=== PATIENT | male | born 1990 | race Hispanic/Latino ===

== ENCOUNTER 2017-11-11 12:29 | Emergency (ER) | payer SELFPAY ==
[2017-11-11] MEDS ORDERED: FLUORESCEIN SODIUM 0.6 MG/WRAP ONE (15:45)
[2017-11-11] MEDS ORDERED: TETRACAINE HCL 0.5% 2ML OPTH ONE (15:45)
[2017-11-11] MEDS ORDERED: NA CHLORIDE 0.9% 1,000 ML ONE (16:08)
--- NOTE | 2017-11-11 16:44 | ER ---
Nurse's Notes [facility] Name: Willie Iverson Age: 27 yrs Sex: Male : 1990 Arrival Date: 11/11/2017 Time: 12:34 Bed 28 Private MD: Diagnosis: Injury of conjunctiva and corneal abrasion without foreign body, left eye Presentation: 11/11 12:45 Presenting complaint: Patient states: i was at work yesterday and a piece of insulation hj or fiber glass, a piece of metal got into my eye, and its bothering now, 8/10 pain; teary eyed;. Transition of care: patient was not received from another setting of care. Onset of symptoms was November 11, 2017. Care prior to arrival: None. 12:45 Method Of Arrival: Ambulatory 12:45 Acuity: PATRICIA 4 hj Triage Assessment: 12:47 General: Appears in no apparent distress. uncomfortable, Behavior is calm, cooperative, hj appropriate for age. Pain: Denies pain. Historical: - Allergies: 12:46 No Known Allergies; hj - Home Meds: 12:46 None [Active]; hj - PMHx: 12:46 None; hj - PSHx: 12:46 None; hj - Immunization history:: Flu vaccine is up to date. - Social history:: Smoking status: Patient/guardian denies using tobacco. Screenin:18 Abuse screen: Denies threats or abuse. Nutritional screening: No deficits noted. kb1 Tuberculosis screening: No symptoms or risk factors identified. Fall Risk None identified. Assessment: 15:18 General: Appears in no apparent distress. Behavior is calm, cooperative. Pain: kb1 Complains of pain in left eye. Neuro: Level of Consciousness is awake, alert, obeys commands, Oriented to person, place, time, situation. Cardiovascular: Patient's skin is warm and dry. Respiratory: Airway is patent. GI: No signs and/or symptoms were reported involving the gastrointestinal system. : No signs and/or symptoms were reported regarding the genitourinary system. 15:28 Injury Description: Foreign body is located left eye is states "I was at work and I was kb1 tearing down panels. Last night my eye started hurting. 16:30 Reassessment: Patient appears in no apparent distress at this time. Patient and/or kb1 family updated on plan of care and expected duration. Pain level reassessed. Patient is alert, oriented x 3, equal unlabored respirations, skin warm/dry/pink. Patient states feeling better. Vital Signs: 12:47 BP 143 / 81; Pulse 82; Resp 18; Temp 98.2(TE); Pulse Ox 100% on R/A; Weight 77.11 kg; hj Height 5 ft. 5 in. (165.10 cm); Pain 8/10; 15:18 BP 129 / 78; Pulse 75; Resp 18; Pulse Ox 100% ; kb1 16:26 BP 142 / 82; Pulse 78; Resp 18; Pulse Ox 100% ; kb1 12:47 Body Mass Index 28.29 (77.11 kg, 165.10 cm) hj Visual Acuity: 15:29 Left Eye Visual acuity 20/40, ; Right Eye Visual acuity 20/25, ; Both Eyes Visual kb1 acuity 20/25; Without Lenses; ED Course: 12:34 Patient arrived in ED. mr 12:46 Triage completed. hj 12:47 Arm band placed on right wrist. hj 15:00 Noelle Keith NP is PHCP. rh1 15:00 Chance Monet MD is Attending Physician. rh1 15:17 Augustina Crouch, DANIELLE is Primary Nurse. kb1 15:18 Patient has correct armband on for positive identification. Bed in low position. Call kb1 light in reach. Side rails up X 1. Pulse ox on. NIBP on. 15:18 No provider procedures requiring assistance completed. Patient did not have IV access kb1 during this emergency room visit. 16:11 Eye irrigation of left eye IV tubing with 1 liter normal saline, Patient tolerated well.kb1 16:43 Elaine Neely MD is Referral Physician. 1 Administered Medications: 15:30 Drug: Tetracaine Solution (0.5 %) 1 vials {Note: Given to provider for administration.} kb1 Route: Topical; Site: left eye; 15:30 Drug: Fluorescein Strip 1 strip {Note: Given to provider for administration.} Route: kb1 Ophthalmic; Site: left eye; Outcome: 16:43 Discharge ordered by . 1 16:51 Discharged to home ambulatory. kb1 16:51 Condition: improved 16:51 Discharge instructions given to patient, Instructed on discharge instructions, follow up and referral plans. medication usage, Demonstrated understanding of instructions, follow-up care, medications, Prescriptions given X 1. 16:52 Patient left the ED. kb1 Signatures: Maggie Rose mr Noelle Keith, GLENN TRADER rh1 Gino Hernandez RN RN Augustina Lomax RN RN kb1 Corrections: (The following items were deleted from the chart) 12:48 12:47 Pulse 82bpm; Resp 18bpm; Pulse Ox 100% RA; Temp 98.2F Temporal; 77.11 kg; Height hj 5 ft. 5 in.; BMI: 28.2; Pain 8/10; hj
--- NOTE | 2017-11-11 16:45 | EDPHYS ---
Physician Documentation [facility] Name: Willie Iverson Age: 27 yrs Sex: Male : 1990 Arrival Date: 11/11/2017 Time: 12:34 Bed 28 Private MD: ED Physician Chance Monet HPI: 11/11 15:18 This 27 yrs old Male presents to ER via Ambulatory with complaints of Foreign rh1 Body In Eye. 15:18 The patient is experiencing foreign body sensation, tearing, The patient sustained rh1 pulling out insulation and thinks a piece got into his eye, to the left eye. Onset: The symptoms/episode began/occurred yesterday. Duration: the symptoms are continuous. Aggravated by blinking, Alleviated by nothing. Associated signs and symptoms: Pertinent negatives: chills, fever, headache, runny nose. Patient does not utilize any form of vision correction. Severity of symptoms: At their worst the symptoms were moderate in the emergency department the symptoms are unchanged. The patient has experienced a previous episode. The patient has not recently seen a physician. Pt. reports he was pulling out insulation yesterday and thinks he may have gotten some in his eye. He rubbed it last night, and has been having tearing and redness at left eye. Denies any decreased vision, fever, trauma.. Historical: - Allergies: 12:46 No Known Allergies; - Home Meds: 12:46 None [Active]; hj - PMHx: 12:46 None; hj - PSHx: 12:46 None; - Immunization history:: Flu vaccine is up to date. - Social history:: Smoking status: Patient/guardian denies using tobacco. ROS: 15:18 Constitutional: Negative for fever rh1 15:18 Eyes: Positive for foreign body sensation, redness, tearing, Negative for matting, pain, visual disturbance. 15:18 ENT: Negative for rhinorrhea, sinus congestion. 15:18 Abdomen/GI: Negative for vomiting. 15:18 Neuro: Negative for headache. 15:18 All other systems are negative. Exam: 15:18 Constitutional: This is a well developed, well nourished patient who is awake, alert, rh1 and in no acute distress. Head/Face: Normocephalic, atraumatic. ENT: Nares patent. No nasal discharge, no septal abnormalities noted. Tympanic membranes are normal and external auditory canals are clear. Oropharynx with no redness, swelling, or masses, exudates, or evidence of obstruction, uvula midline. Mucous membranes moist. Cardiovascular: Regular rate and rhythm with a normal S1 and S2. No gallops, murmurs, or rubs. No JVD. No pulse deficits. Respiratory: Lungs have equal breath sounds bilaterally, clear to auscultation. No rales, rhonchi or wheezes noted. No increased work of breathing. Abdomen/GI: Soft, non-tender, with normal bowel sounds. No distension. No guarding or rebound. No evidence of tenderness throughout. Skin: Warm, dry with normal turgor. Normal color with no rashes, no lesions, and no evidence of cellulitis. Neuro: Awake and alert, GCS 15, oriented to person, place, time, and situation. Cranial nerves II-XII grossly intact. Motor strength 5/5 in all extremities. Sensory grossly intact. Cerebellar exam normal. Normal gait. 15:18 Eyes: Periorbital structures: appear normal, no abrasion, no cellulitis, no contusion, no erythema, no swelling, Pupils: no acute changes, normal size, normal reaction to light, equal, right pupil is approximately 3 mm(s), left pupil is approximately 3 mm(s), Extraocular movements: intact throughout, Conjunctiva: injected, in the left eye, Corneas: foreign body, on the left, at 9 o'clock, centrally, Nystagmus: is not appreciated. Vital Signs: 12:47 BP 143 / 81; Pulse 82; Resp 18; Temp 98.2(TE); Pulse Ox 100% on R/A; Weight 77.11 kg; Height 5 ft. 5 in. (165.10 cm); Pain 8/10; 15:18 BP 129 / 78; Pulse 75; Resp 18; Pulse Ox 100% ; kb1 16:26 BP 142 / 82; Pulse 78; Resp 18; Pulse Ox 100% ; kb1 12:47 Body Mass Index 28.29 (77.11 kg, 165.10 cm) Visual Acuity: 15:29 Left Eye Visual acuity 20/40, ; Right Eye Visual acuity 20/25, ; Both Eyes Visual kb1 acuity 20/25; Without Lenses; Procedures: 15:32 Eye Exam: tetracaine and fluorescein stain to left eye, with pinpoint abrasion at left rh1 cornea 9 o'clock medially, with abrasion adjacent to that, approx. 3 mm long; lid everted and without foreign body. MDM: 15:01 Patient medically screened. rh1 16:43 Data reviewed: vital signs, nurses notes, and as a result, I will discharge patient. rh1 Data interpreted: Pulse oximetry: on room air is 100 %. Interpretation: normal. Counseling: I had a detailed discussion with the patient and/or guardian regarding: the historical points, exam findings, and any diagnostic results supporting the discharge/admit diagnosis, the need for outpatient follow up, an opthalmologist, to return to the emergency department if symptoms worsen or persist or if there are any questions or concerns that arise at home. 11/11 15:21 Order name: Visual Acuity; Complete Time: 15:30 rh1 11/11 15:34 Order name: [facility] – [place], [place]. Order: please irrigate left eye with sterile saline - 1 L please; [facility] Complete Time: 16:12 Administered Medications: 15:30 Drug: Tetracaine Solution (0.5 %) 1 vials {Note: Given to provider for administration.} kb1 Route: Topical; Site: left eye; 15:30 Drug: Fluorescein Strip 1 strip {Note: Given to provider for administration.} Route: kb1 Ophthalmic; Site: left eye; Disposition: 11/12 14:48 Co-signature as Attending Physician, Chance Monet MD I agree with the assessment and mekhi plan of care. Disposition: 11/11/17 16:43 Discharged to Home. Impression: Injury of conjunctiva and corneal abrasion without foreign body, left eye. - Condition is Stable. - Discharge Instructions: Corneal Abrasion. - Prescriptions for Erythromycin 5 mg/gram (0.5 %) Ophthalmic Ointment - apply 1 ribbon by OPHTHALMIC route every 8 hours; 1 tube. - Medication Reconciliation Form, Thank You Letter, Antibiotic Education, Prescription Opioid Use form. - Follow up: Elaine Neely; When: Tomorrow; Reason: Further diagnostic work-up, Recheck today's complaints, Continuance of care. Follow up: Emergency Department; When: As needed; Reason: Fever > 102 F, If symptoms return, Trouble breathing, Worsening of condition. - Problem is new. - Symptoms have improved. Signatures: Chance Monet MD MD cha Jones, Rachel WHEEL PRESS CLERK WHEEL PRESS CLERK rh1 Gino Hernandez RN RN Augustina Lomax RN RN kb1 Corrections: (The following items were deleted from the chart) 11/11 15:35 15:32 Eye Exam: tetracaine and fluorescein stain to left eye, with pinpoint abrasion vs rh1 foreign body at left cornea 9 o'clock medially, with abrasion adjacent to that, approx. 3 mm long rh1
== END 2017-11-11 16:52 | disposition home or self-care (01) ==
LOC: ER 12:29
DX: S05.02XA Injury of conjunctiva and corneal abrasion without foreign body, left eye, initial encounter (principal); X58.XXXA Exposure to other specified factors, initial encounter; Y93.89 Activity, other specified; Y92.9 Unspecified place or not applicable; Y99.0 Civilian activity done for income or pay
CPT/HCPCS: 99284; J7030

== ENCOUNTER 2018-02-17 20:25 | Emergency (ER) | payer SELFPAY ==
--- OUTSIDE RECORDS SUMMARY | 2018-02-17 20:27 | XMS REPORT | Continuity of Care Document ---
:1990 Author Organization Interface Problems Problem Status Onset Date Classification Date Comments Source Reported Medications Medication Details Route Status Patient Ordering Order Source Instructions Provider Date Allergies, Adverse Reactions, Alerts Substance Category Reaction Severity Reaction Status Date Comments Source type Reported Immunizations Immunization Date Given Site Status Last Updated Comments Source Results Order Results Value Reference Date Interpretation Comments Source Name Range Vital Signs Vital Sign Value Date Comments Source Encounters Location Location Encounter Encounter Reason Attending ADM DC Status Source Details Type Number For Provider Date Date Visit Outpatient [id number] LEEANNE 05/09 [facility] Procedures Procedure Code Date Perfomer Comments Source
[2018-02-17] MEDS ORDERED: FENTANYL CITR 100 MCG/2 ML ONE (20:58)
[2018-02-17] MEDS ORDERED: KETOROLAC 30 MG/ML INJ ONE (20:58)
[2018-02-17 21:02] LABS: Absolute Lymphocytes (CBC) 2.8 K/uL (0.7-4.9); Absolute Monocytes 0.6 K/uL (0.1-1.3); Absolute Neutrophil 7.5 K/uL (1.8-8.0); Basophils % 0.4 % (0-1.3); Hematocrit 43.2 % (39.6-49.0); Lymphocytes % 24.9 % (15.3-44.8); MCH 31.2 pg (27.0-35.0); MPV 9.1 fL (7.6-11.3); Monocytes % 5.6 % (3.3-12.3)
[2018-02-17 21:21] LABS: ALT/SGPT 76 U/L (12-78); AST/SGOT 40 U/L (15-37); Alkaline Phosphatase 111 U/L (45-117); BUN Blood Urea Nitrogen 17 mg/dL (7-18); Bicarbonate 28 mmol/L (21-32); Bilirubin Direct < 0.1 mg/dL (0-0.2); Bilirubin Total 0.2 mg/dL (0.2-1.0); Glucose Level 128 mg/dL (74-106); Potassium 3.6 mmol/L (3.5-5.1); Protein, Total 7.4 g/dL (6.4-8.2); Sodium Level 139 mmol/L (136-145)
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
[2018-02-17 22:45] LABS: Urine Blood NEGATIVE (NEG); Urine Glucose NEGATIVE (NEG); Urine Protein NEGATIVE (NEG); Urine Specific Gravity 1.015 (1.005-1.030)
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
[2018-02-17 23:54] LABS: Urine Bacteria <20 /HPF (NONE SEEN); Urine Culture Reflex Order NOT NEEDED; Urine RBC NONE SEEN /HPF (NONE SEEN)
== END 2018-02-18 00:16 | disposition home or self-care (01) ==
LOC: ER 20:25
DX: S29.9XXA Unspecified injury of thorax, initial encounter (principal); V86.55XA Driver of 3- or 4- wheeled all-terrain vehicle (ATV) injured in nontraffic accident, initial encounter
CPT/HCPCS: 36415; 71260; 74177; 80048; 80076; 81003; 81015; 85025; 96374; 96375; 99285; J3010; Q9967